=== PATIENT | male | born 1975 | race Caucasian/White ===

== ENCOUNTER 2017-12-14 11:02 | Emergency (ER) | payer SELFPAY ==
[~2017-12-14] VITALS: Ht 165.1 cm; Wt 89.4 kg
[~2017-12-14 11:02] MED LIST: NO MEDS
[2017-12-14 11:07] VITALS: BP 149/85
--- NOTE | 2017-12-14 11:10 | NUR ---
PT TAKEN TO BED 12.
--- NOTE | 2017-12-14 11:15 | NUR ---
42M BIB SON WITH C/O 8/10 "SHARP" NON RADIATING RIGHT RIB PAIN X 4 DAYS. PT REPORS THAT PAIN OCCURING WHEN COUGHING. PT DENIES ANY FEVERS, N/V/D. PT DENIES ANY INJURY TO CHEST. NO BRUISING NOTED TORSO. PT IS AOX4 WITH STEADY GAIT. RR ARE EVEN AND UNLABORED. NO ACUTE DISTRESS. ER MD WHITESIDERIST BY BEDSIDE. ALL NEEDS MET AT THIS TIME. WILL CONTIUE TO MONITOR.
[2017-12-14] MEDS ORDERED: HYDROcodone/APAP 5/325 MG 1 TAB TAB PO ONE (11:20)
--- NOTE | 2017-12-14 11:20 | NUR ---
LAB BY BEDSIDE
[2017-12-14 11:40] LABS: BASOPHILS # (AUTO) 0.2 K/uL (0.00-0.22); BASOPHILS % (AUTO) 2.3 % (0.0-2.0); EOSINOPHILS # (AUTO) 0.1 K/uL (0-0.4); EOSINOPHILS % (AUTO) 1.1 % (0.0-4.0); HEMATOCRIT 46.8 % (36-52); HEMOGLOBIN 15.5 g/dL (12.0-18.0); LYMPHOCYTES % (AUTO) 28.2 % (20.5-51.1); MEAN CORPUSCULAR HEMOGLOBIN 28 pg (27-31); MEAN CORPUSCULAR HGB CONC 33 g/dL (33-37); MEAN CORPUSCULAR VOLUME 84 fL (80-94); MONOCYTES # (AUTO) 0.5 K/uL (0.8-1.0); MONOCYTES % (AUTO) 6.5 % (1.7-9.3); NEUTROPHILS # (AUTO) 4.4 K/uL (1.8-7.7); NEUTROPHILS % (AUTO) 61.9 % (42.2-75.2); PLATELET COUNT (AUTO) 315 K/uL (140-450); RED BLOOD CELL COUNT(AUTO) 5.58 MIL/uL (4.20-6.10); RED CELL DISTRIBUTION WIDTH 11.9 % (11.6-13.7); WHITE BLOOD COUNT (AUTO) 7.2 K/uL (4.8-10.8)
[2017-12-14 11:56] LABS: ANION GAP 10.2 (8-16); CARBON DIOXIDE 32.5 mmol/L (21-32); CREATININE 1.1 mg/dL (0.7-1.3); POTASSIUM 3.7 mmol/L (3.5-5.1); TOTAL BILIRUBIN 0.5 mg/dL (0.0-1.0)
[2017-12-14 12:02] LABS: APPEARANCE,URINE CLEAR (CLEAR); BILIRUBIN,URINE NEGATIVE (NEGATIVE); BLOOD, URINE NEGATIVE (NEGATIVE); COLOR,URINE YELLOW (YELLOW); LEUKOCYTE ESTERASE ,URINE NEGATIVE (NEGATIVE); NITRITE, URINE NEGATIVE (NEGATIVE); PH,URINE 8.5 (5.0-9.0); UGLUCOSE NEGATIVE (NEGATIVE)
[2017-12-14 13:07] VITALS: BP 149/85
== END 2017-12-14 13:07 | disposition home or self-care (01) ==
LOC: MED 11:02
DX: R07.89 Other chest pain (principal); R05 Cough
CPT/HCPCS: 36415; 71045; 80053; 81003; 83690; 84484; 85025; 93005; 99285; Q0092